=== PATIENT | male | born 1990 | race Hispanic/Latino ===

== ENCOUNTER 2024-04-28 12:50 | Emergency (ER) | payer SELFPAY ==
[2024-04-28] MEDS ORDERED: Ibuprofen 200 MG TAB ONE (14:45)
== END 2024-04-28 14:49 | disposition home or self-care (01) ==
LOC: CSHERS 12:50
DX: B02.9 Zoster without complications (principal)
CPT/HCPCS: 99283

== ENCOUNTER 2025-06-25 20:01 | Emergency (ER) | payer SELFPAY ==
[2025-06-25] MEDS ORDERED: Ketorolac Tromethamine 30 MG (1 mL) VIAL ONE (21:53)
== END 2025-06-25 22:00 | disposition home or self-care (01) ==
LOC: CSHERS 20:01
DX: K02.9 Dental caries, unspecified (principal)
CPT/HCPCS: 96372; 99282; J1885